=== PATIENT | male | born 1995 | race African-American/Black ===

== ENCOUNTER 2020-11-04 01:13 | Emergency (ER) | payer OTHER ==
[~2020-11-04] VITALS: Ht 190.5 cm; Wt 81.6 kg
[2020-11-04] MEDS ORDERED: LEVSIN0.125 MG PO (09:31)
[2020-11-04] MEDS ORDERED: CARAFATE1 GM PO (09:31)
[2020-11-04] MEDS ORDERED: PEPCID AC20 MG PO (09:31)
[2020-11-04] MEDS ORDERED: ZOFRAN4 MG PO (09:34)
== END 2020-11-04 09:48 | disposition home or self-care (01) ==
LOC: ER 01:13
DX: R10.84 Generalized abdominal pain (principal); R11.2 Nausea with vomiting, unspecified; Z11.52 Encounter for screening for COVID-19